=== PATIENT | male | born 1995 | race Caucasian/White ===

== ENCOUNTER 2018-07-22 11:00 | Emergency (ER) | payer MEDICARE ==
[~2018-07-22] VITALS: Ht 170.2 cm; Wt 95.7 kg
[2018-07-22] MEDS ORDERED: KEFLEX500 M1 PO (11:27)
[2018-07-22] MEDS ORDERED: PROMETHAZINE V120 ML PO (11:27)
[2018-07-22 11:40] VITALS: BP 147/88
== END 2018-07-22 11:43 | disposition home or self-care (01) ==
LOC: M.ERS 11:00
DX: J20.9 Acute bronchitis, unspecified (principal); Z88.8 Allergy status to other drugs, medicaments and biological substances